=== PATIENT | male | born 2000 | race Hispanic/Latino ===

== ENCOUNTER 2023-10-17 21:52 | Emergency (ER) | payer MEDICAID ==
[~2023-10-17] VITALS: Ht 175.3 cm; Wt 113.4 kg
[2023-10-17] MEDS ORDERED: LIDOCAINE HCL 1% LOCAL INJ 20 ML VIAL INJ STA (22:03)
[2023-10-17] MEDS ORDERED: SODIUM CHLORIDE 0.9% 1000ML 2,000 ML IV STA (22:10)
[2023-10-17] MEDS ORDERED: ACETAMINOPHEN 325 MG TAB PO ONE (22:15)
[2023-10-17] MEDS ORDERED: ONDANSETRON HCL INJ 2MG/ML 2ML 2 MG/ML VIAL ONE (22:31)
[2023-10-17] MEDS ORDERED: FENTANYL CITRATE/PF 100MCG/2 ML INJ ONE (22:31)
[2023-10-17] MEDS ORDERED: ONDANSETRON ODT4 MG PO (22:36)
[2023-10-17] MEDS ORDERED: CEPHALEXIN500 MG PO (22:36)
[2023-10-17] MEDS ORDERED: BACTRIM DS TAB1 EACH PO (22:36)
[2023-10-17] MEDS ORDERED: ONDANSETRON HCL INJ 2MG/ML 2ML 2 MG/ML VIAL IV STA (22:38)
[2023-10-17] MEDS: FENTANYL CITRATE/PF 100MCG/2 ML INJ IV STA ×2 (22:42→22:48)
[2023-10-17] MEDS ORDERED: ULTRAM 50MG50 MG PO (23:25)
[2023-10-17] MEDS ORDERED: IBUPROFEN 600 MG TAB PO STA (23:42)
[2023-10-17 23:49] VITALS: O2SAT 97
== END 2023-10-18 00:10 | disposition home or self-care (01) ==
LOC: ER 21:58
DX: L02.212 Cutaneous abscess of back [any part, except buttock and flank] (principal)
CPT/HCPCS: 10061; 99283; J2001; J2405; J3010

== ENCOUNTER 2024-08-24 09:21 | Emergency (ER) | payer SELFPAY ==
[~2024-08-24] VITALS: Ht 175.3 cm; Wt 104.3 kg
[~2024-08-24 09:21] MED LIST: BACTRIM DS TAB1 EACH PO; CEPHALEXIN500 MG PO; ONDANSETRON ODT4 MG PO; ULTRAM 50MG50 MG PO
[2024-08-24 09:27] VITALS: PULSE 93; RESP 16; TEMP 97.8; O2SAT 100
== END 2024-08-24 10:21 | disposition home or self-care (01) ==
LOC: ER 09:25
DX: R05.9 Cough, unspecified (principal); B34.9 Viral infection, unspecified; R09.89 Other specified symptoms and signs involving the circulatory and respiratory systems; D57.3 Sickle-cell trait
CPT/HCPCS: 83518; 87070; 99282